=== PATIENT | female | born 1970 | race Caucasian/White ===

== ENCOUNTER 2018-02-23 16:29 | Inpatient (IN) | payer OTHER ==
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
[2018-02-23] MEDS ORDERED: ACETAMINOPHEN 325 MG TABLET (FP) PO PRN (18:49)
[2018-02-23] MEDS ORDERED: MAG HYDROX/AL HYDROX/SIMETH 30 ML UNIT-DOSE CUP PO PRN (18:49)
[2018-02-23] MEDS ORDERED: MAGNESIUM CITRATE 300 ML BOTTLE PO PRN (18:49)
[2018-02-23] MEDS ORDERED: LOPERAMIDE HCL 2 MG CAPSULE PO PRN (18:49)
[2018-02-23] MEDS ORDERED: MENTHOL/PHENOL 1 EACH UD MM PRN (18:49)
[2018-02-23] MEDS ORDERED: guaiFENesin/D-METHORPHAN HB 10 ML UNIT-DOSE CUPS PO PRN (18:49)
[2018-02-23] MEDS ORDERED: MAGNESIUM HYDROX 2400MG/30ML ORAL SUSPENSION 30 ML CUP PO PRN (18:49)
[2018-02-23] MEDS ORDERED: P-EPHED 60MG/TRIPROLIDI 2.5MG TABLET PO PRN (18:49)
[2018-02-23] MEDS ORDERED: COLLOIDAL OATMEAL 1 BAR EACH TP PRN (18:51)
[2018-02-23] MEDS ORDERED: METHADONE HCL 10 MG TABLET (FOR DETOX USE ONLY) PO ONE ×2 (21:15→23:00)
[2018-02-23] MEDS ORDERED: MINERAL OIL/PETROLAT/WATER TOPICAL CREAM 454 GM JAR TP SCH (22:00)
[2018-02-23] MEDS: diazePAM 5 MG TABLET PO PRN (22:43)
[2018-02-23] MEDS: THIAMINE HCL 100 MG TABLET (FP) PO SCH (22:46)
[2018-02-23] MEDS: CEPHALEXIN MONOHYDRATE 500 MG CAPSULE (UD) PO SCH (23:17)
[2018-02-24] MEDS: hydrOXYzine PAMOATE 50 MG CAPSULE (FP) PO PRN ×2 (01:51→22:43)
[2018-02-24] MEDS: IBUPROFEN 400 MG TABLET (FP) PO PRN (06:12)
[2018-02-24] MEDS: diazePAM 5 MG TABLET PO PRN ×3 (06:12→22:43)
[2018-02-24] MEDS: CEPHALEXIN MONOHYDRATE 500 MG CAPSULE (UD) PO SCH ×4 (06:13→23:06)
[2018-02-24] MEDS ORDERED: METHADONE HCL 10 MG TABLET (FOR DETOX USE ONLY) PO ONE (10:00)
[2018-02-24 10:11] LABS: HEMATOCRIT 41.1 % (32.4-45.2); HEMOGLOBIN 13.5 GM/dL (10.7-15.3); MCH 30.8 pg (25.7-33.7); MCHC 32.9 g/dl (32.0-36.0); MEAN CELL VOLUME 93.6 fl (80-96); MEAN PLT VOLUME 9.2 fl (7.5-11.1); PLATELET COUNT 284 K/MM3 (134-434); RDW 12.4 % (11.6-15.6); WHITE BLOOD COUNT 6.8 K/mm3 (4.0-10.0)
--- NOTE | 2018-02-24 10:22 | EKG ---
Test Reason : Blood Pressure : / mmHG Vent. Rate : 059 BPM Atrial Rate : 059 BPM P-R Int : 148 ms QRS Dur : 092 ms QT Int : 428 ms P-R-T Axes : 038 012 032 degrees QTc Int : 423 ms SINUS BRADYCARDIA OTHERWISE NORMAL ECG NO PREVIOUS ECGS AVAILABLE Confirmed by BOBBI BRADLEY, FRED ([id number]) on 02/24/2018 10:21:29 AM Referred By: Confirmed By:FRED MARTINES MD
[2018-02-24] MEDS: PRENATAL VITAMINS W/ FOLIC ACID TABLET (FP) PO SCH (10:47)
[2018-02-24] MEDS: NICOTINE 21 MG/24 HOURS TOPICAL PATCH TD SCH (10:47)
[2018-02-24] MEDS: NICOTINE POLACRILEX 4 MG GUM BC PRN (10:48)
[2018-02-24] MEDS: MINERAL OIL/PETROLAT/WATER TOPICAL CREAM 454 GM JAR TP SCH ×2 (10:53→22:41)
--- NOTE | 2018-02-24 11:36 | PN ---
BHS COWS - Scale Resting Pulse: 0= IN 80 or Below Sweatin=Flushed/Facial Moisture Restless Observation: 1= Difficult to Sit Still Pupil Size: 0= Normal to Room Light Bone or Joint Aches: 2= Severe Diffuse Aches Runny Nose/ Eye Tearin= Nasal Congestion GI Upset > 30mins: 0= None Tremor Observation of Outstretched Hands: 2= Slight Tremor Visible Yawning Observation: 2= >3x During Session Anxiety or Irritability: 2=Irritable/Anxious Goose Flesh Skin: 0=Smooth Skin COWS Score: 12 BHS Progress Note (SOAP) Subjective: irritable sweats agitation body aches shakes interrupted sleep Objective: 02/24/18 11:35 Vital Signs Temperature 98.1 F 02/24/18 09:23 Pulse Rate 62 02/24/18 09:23 Respiratory Rate 20 02/24/18 09:23 Blood Pressure 123/66 02/24/18 09:23 O2 Sat by Pulse Oximetry (%) Laboratory Tests 02/24/18 07:00 WBC 6.8 RBC 4.40 Hgb 13.5 Hct 41.1 MCV 93.6 MCH 30.8 MCHC 32.9 RDW 12.4 D Plt Count 284 MPV 9.2 rest of labs pending aaox3 ambulating no acute distress Assessment: 02/24/18 11:36 withdrawal sx Plan: continue detox increase fluids labs pending
[2018-02-24 11:40] LABS: ALBUMIN 3.6 g/dl (3.4-5.0); ALK PHOS 129 U/L (45-117); ANION GAP 8 MMOL/L (8-16); BILIRUBIN,TOTAL 0.6 mg/dL (0.2-1); BLOOD UREA NITROGEN 7 mg/dL (7-18); CALCIUM 8.9 mg/dL (8.5-10.1); CHLORIDE 105 mmol/L (98-107); CO2 25 mmol/L (21-32); CREATININE 0.7 mg/dL (0.55-1.3); GLUCOSE,RANDOM 97 mg/dL (74-106); POTASSIUM 4.3 mmol/L (3.5-5.1); SGOT/AST 38 U/L (15-37); SGPT/ALT 36 U/L (13-61); SODIUM 138 mmol/L (136-145); TOT PROT 8.6 g/dl (6.4-8.2)
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
[2018-02-24] MEDS: MIRTAZAPINE 15 MG TABLET (FP) PO SCH (22:41)
[2018-02-24] MEDS: THIAMINE HCL 100 MG TABLET (FP) PO SCH (22:41)
[2018-02-24] MEDS: MELATONIN 5 MG TABLETS PO PRN (22:41)
[2018-02-25] MEDS: diazePAM 5 MG TABLET PO PRN ×4 (06:04→22:45)
[2018-02-25] MEDS: CEPHALEXIN MONOHYDRATE 500 MG CAPSULE (UD) PO SCH ×3 (06:04→18:11)
[2018-02-25] MEDS ORDERED: METHADONE HCL 5 MG TABLET (FOR DETOX USE ONLY) PO ONE (10:00)
[2018-02-25] MEDS: NICOTINE 21 MG/24 HOURS TOPICAL PATCH TD SCH ×2 (11:00→11:03)
[2018-02-25] MEDS: PRENATAL VITAMINS W/ FOLIC ACID TABLET (FP) PO SCH (11:00)
[2018-02-25] MEDS: NICOTINE POLACRILEX 4 MG GUM BC PRN (11:04)
[2018-02-25] MEDS: MINERAL OIL/PETROLAT/WATER TOPICAL CREAM 454 GM JAR TP SCH ×2 (11:11→23:37)
--- NOTE | 2018-02-25 13:12 | PN ---
BHS COWS - Scale Resting Pulse: 0= [place] 80 or Below Sweatin= Chills/Flushing Restless Observation: 1= Difficult to Sit Still Pupil Size: 0= Normal to Room Light Bone or Joint Aches: 2= Severe Diffuse Aches Runny Nose/ Eye Tearin= Runny Nose/Eyes GI Upset > 30mins: 0= None Tremor Observation of Outstretched Hands: 1= Tremor [place], Not Seen Yawning Observation: 1= 1-2x During Session Anxiety or Irritability: 2=Irritable/Anxious Goose Flesh Skin: 0=Smooth Skin COWS Score: 10 BHS Progress Note (SOAP) Subjective: sweats shakes restless legs are getting better interrupted sleep agitation Objective: 02/25/18 13:12 Vital Signs Temperature 98.1 F 02/25/18 09:30 Pulse Rate 56 L 02/25/18 09:30 Respiratory Rate 16 02/25/18 09:30 Blood Pressure 120/63 02/25/18 09:30 O2 Sat by Pulse Oximetry (%) Laboratory Tests 02/24/18 02/24/18 02/24/18 07:00 07:00 07:00 WBC 6.8 RBC 4.40 Hgb 13.5 Hct 41.1 MCV 93.6 MCH 30.8 MCHC 32.9 RDW 12.4 D Plt Count 284 MPV 9.2 Sodium 138 Potassium 4.3 Chloride 105 Carbon Dioxide 25 Anion Gap 8 BUN 7 Creatinine 0.7 Creat Clearance w eGFR > 60 Random Glucose 97 Calcium 8.9 Total Bilirubin 0.6 AST 38 H ALT 36 Alkaline Phosphatase 129 H Total Protein 8.6 H Albumin 3.6 RPR Titer Nonreactive aaox3 ambulating no acute distress Assessment: 02/25/18 13:12 withdrawal sx Plan: continue detox increase fluids
[2018-02-25] MEDS: IBUPROFEN 400 MG TABLET (FP) PO PRN (14:03)
[2018-02-25] MEDS: hydrOXYzine PAMOATE 50 MG CAPSULE (FP) PO PRN (14:03)
[2018-02-25] MEDS: MELATONIN 5 MG TABLETS PO PRN (22:45)
[2018-02-25] MEDS: THIAMINE HCL 100 MG TABLET (FP) PO SCH (22:45)
[2018-02-25] MEDS: MIRTAZAPINE 15 MG TABLET (FP) PO SCH (22:45)
[2018-02-26] MEDS: CEPHALEXIN MONOHYDRATE 500 MG CAPSULE (UD) PO SCH ×5 (01:29→23:06)
[2018-02-26] MEDS: diazePAM 5 MG TABLET PO PRN ×2 (08:45→13:07)
[2018-02-26] MEDS ORDERED: METHADONE HCL 5 MG TABLET (FOR DETOX USE ONLY) PO ONE (10:00)
[2018-02-26] MEDS: MINERAL OIL/PETROLAT/WATER TOPICAL CREAM 454 GM JAR TP SCH ×2 (10:22→22:33)
[2018-02-26] MEDS: PRENATAL VITAMINS W/ FOLIC ACID TABLET (FP) PO SCH (10:22)
[2018-02-26] MEDS: NICOTINE POLACRILEX 4 MG GUM BC PRN (10:23)
[2018-02-26] MEDS: NICOTINE 21 MG/24 HOURS TOPICAL PATCH TD SCH (10:23)
--- NOTE | 2018-02-26 12:29 | PN ---
BHS Progress Note (SOAP) Subjective: agitation anxiety body aches irritable restless Objective: 02/26/18 12:29 Vital Signs Temperature 97.7 F 02/26/18 09:29 Pulse Rate 67 02/26/18 09:29 Respiratory Rate 18 02/26/18 09:29 Blood Pressure 124/70 02/26/18 09:29 O2 Sat by Pulse Oximetry (%) aaox3 ambulating no acute distress Assessment: 02/26/18 12:29 withdrawal sx Plan: continue detox increase fluids
--- NOTE | 2018-02-26 17:30 | PN ---
Psychiatric Progress Note Vital Signs: Vital Signs Period Temp Pulse Resp BP Sys/Beltre Pulse Ox Last 24 Hr 97.3 F-98.2 F 51-97 -18 110-136/62-77 Date of Session: 02/26/18 Chief Complaint:: " I need more benzos. I am anxious ". HPI: Called to re-examine this patient for complaint of anxiety. ROS: Unremarkable. Current Medications: Active Medications Generic Name Dose Route Start Last Admin Trade Name Freq PRN Reason Stop Dose Admin Acetaminophen 650 mg 02/23/18 18:49 Tylenol - PO Q4H PRN FEVER Al Hydroxide/Mg Hydroxide 30 ml 02/23/18 18:49 Mylanta Oral Suspension - PO Q6H PRN DYSPEPSIA Cephalexin HCl 500 mg 02/24/18 00:00 02/26/18 11:37 Keflex - PO 03/03/18 00:00 500 mg Q6HPO KAYLA Administration Colloidal Oatmeal 1 applic 02/23/18 18:51 02/24/18 06:12 Aveeno Soap - TP 1 applic DAILY PRN Administration HYGEINE Diazepam 10 mg 02/23/18 18:49 02/26/18 13:07 Valium - PO 02/26/18 18:48 10 mg Q4H PRN Administration WITHDRAWAL(CONT SUBST) Eucalyptus/Menthol/Phenol/Sorbitol 1 each 02/23/18 18:49 Cepastat Lozenge - MM Q4H PRN SORE THROAT Guaifenesin 10 ml 02/23/18 18:49 Robitussin Dm - PO Q6H PRN COUGH Hydroxyzine Pamoate 50 mg 02/23/18 18:49 02/25/18 14:03 Vistaril - PO 50 mg Q4H PRN Administration AGITATION Ibuprofen 400 mg 02/23/18 18:49 02/25/18 14:03 Motrin - PO 400 mg Q6H PRN Administration PAIN LEVEL 4-6 Loperamide HCl 4 mg 02/23/18 18:49 Imodium - PO Q6H PRN DIARRHEA Magnesium Citrate 300 ml 02/23/18 18:49 Citroma - PO Q48H PRN CONSTIPATION Magnesium Hydroxide 30 ml 02/23/18 18:49 Milk Of Magnesia - PO DAILY PRN CONSTIPATION Melatonin 5 mg 02/23/18 22:00 02/25/18 22:45 Melatonin PO 5 mg HS PRN Administration INSOMNIA Methadone HCl 5 mg 02/28/18 06:00 Dolophine - PO 02/28/18 06:01 ONCE@0600 ONE Methadone HCl 10 mg 02/27/18 10:00 Dolophine - PO 02/27/18 10:01 ONCE ONE Mirtazapine 15 mg 02/24/18 22:00 02/25/18 22:45 Remeron - PO 15 mg HS KAYLA Administration Multi-Ingredient Lotion 1 applic 02/24/18 10:00 02/26/18 10:22 Eucerin (Large Jar) - TP 1 applic BID KAYLA Administration Nicotine 21 mg 02/24/18 10:00 02/26/18 10:23 Nicoderm Patch - TD Not Given DAILY KAYLA Nicotine Polacrilex 4 mg 02/23/18 18:49 02/26/18 10:23 Nicorette Gum - BC 4 mg Q2H PRN Administration NICOTINE REPLACEMENT RX Multivit/Folic Acid/Iron 1 tab 02/24/18 10:00 02/26/18 10:22 Vitamins (Sjr) - PO 1 tab DAILY KAYLA Administration Pseudoephedrine/Triprolidine 1 combo 02/23/18 18:49 Actifed - PO TID PRN NASAL CONGESTION Thiamine HCl 100 mg 02/23/18 22:00 02/25/18 22:45 Vitamin B1 - PO 100 mg HS KAYLA Administration Medication(s) Change(s): No change. Patient is offered non-benzodiazepine medications (hydroxyzine, SSI agents, buspirone). Ms Loyd declines. Current Side Effect: No Lab tests ordered: No Lab tests reviewed: Yes Provider note:: Chart reviewed. Case discussed with nurse. Patient interviewed. Ms Loyd is adamant about what she wants in this course of treatment. " I want more benzos ". Patient is redirected. She is informed of the current guidelines for the treatment of anxiety disorders and made aware of the pitfalls of benzodiazepine abuse. She responded that she is not " interested " in any other intervention except for a referral to a " doctor outside that would prescribe me benzos ". In the meantime, she agrees to enroll in rehabilitation upon completion of this program. Ms Loyd is given reassurance that, on discharge from [facility], she will be referred to an outpatient program where a psychiatrist will address her issues in a judicious/ comprehensive algorithm of medication management. Patient appears to be receptive to this intervention. Calmed down. Mental status is stable. Total face to face time:: 25 Mental Status Exam - Mental Status Exam Alert and Oriented to: Time, Place, Person Cognitive Function: Good Patient Appearance: Well Groomed Mood: Nervous, Apprehensive Affect: Mood Congruent Patient Behavior: Talkative, Appropriate, Cooperative Speech Pattern: Clear, Appropriate Voice Loudness: Normal Thought Process: Goal Oriented Thought Disorder: Not Present Hallucinations: Denies Suicidal Ideation: Denies Homicidal Ideation: Denies Insight/Judgement: Poor Sleep: Well Appetite: Good Gait/Station: Normal Psychiatric Treatment Plan - Problem List (1) Opioid dependence with withdrawal Current Visit: Yes Initial treatment plan: . (2) Nicotine dependence Current Visit: Yes Qualifiers: Nicotine product type: cigarettes Substance use status: uncomplicated Qualified Code(s): F17.210 - Nicotine dependence, cigarettes, uncomplicated Comment: . (3) Substance induced mood disorder Current Visit: Yes Comment: . (4) Insomnia Current Visit: Yes Comment: .
[2018-02-26] MEDS: MIRTAZAPINE 15 MG TABLET (FP) PO SCH (22:32)
[2018-02-26] MEDS: THIAMINE HCL 100 MG TABLET (FP) PO SCH (22:32)
[2018-02-26] MEDS: MELATONIN 5 MG TABLETS PO PRN (22:33)
[2018-02-26] MEDS: hydrOXYzine PAMOATE 50 MG CAPSULE (FP) PO PRN (22:34)
[2018-02-27] MEDS: CEPHALEXIN MONOHYDRATE 500 MG CAPSULE (UD) PO SCH ×2 (05:54→13:24)
[2018-02-27] MEDS ORDERED: METHADONE HCL 10 MG TABLET (FOR DETOX USE ONLY) PO ONE (10:00)
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
[2018-02-27 10:46] VITALS: BP 122/56; PULSE 67; TEMP 98.2
[2018-02-27] MEDS: NICOTINE 21 MG/24 HOURS TOPICAL PATCH TD SCH (11:13)
[2018-02-27] MEDS: MINERAL OIL/PETROLAT/WATER TOPICAL CREAM 454 GM JAR TP SCH (11:13)
[2018-02-27] MEDS: PRENATAL VITAMINS W/ FOLIC ACID TABLET (FP) PO SCH (11:14)
[2018-02-28] MEDS ORDERED: METHADONE HCL 5 MG TABLET (FOR DETOX USE ONLY) PO ONE (06:00)
== END 2018-02-27 09:45 | disposition left against medical advice (07) | DRG 773 ==
LOC: YASAS 16:29 → Y6N 20:21
PROC: HZ2ZZZZ Detoxification Services for Substance Abuse Treatment (ICD-10-PCS; principal; 2018-02-23)
DX: F11.23 Opioid dependence with withdrawal (principal); F17.210 Nicotine dependence, cigarettes, uncomplicated; F19.24 Other psychoactive substance dependence with psychoactive substance-induced mood disorder; F91.8 Other conduct disorders; G47.00 Insomnia, unspecified; B18.2 Chronic viral hepatitis C; L02.416 Cutaneous abscess of left lower limb; Z91.14 Patient's other noncompliance with medication regimen; Z87.42 Personal history of other diseases of the female genital tract; Y04.0XXA Assault by unarmed brawl or fight, initial encounter; Y93.89 Activity, other specified; Y92.230 Patient room in hospital as the place of occurrence of the external cause; Z59.0 Homelessness
CPT/HCPCS: 36415; 80053; 85027; 86593; 93005; 93010